=== PATIENT | male | born 1960 | race Caucasian/White ===

== ENCOUNTER 2018-12-12 12:28 | Day surgery (SDC) | payer OTHER, SELFPAY ==
[2018-12-12] MEDS: SODIUM CHLORIDE 0.9% 1,000 ML 150 ML IV (13:06)
[2018-12-12 13:11] VITALS: BP 120/81; PULSE 89; RESP 16; TEMP 36.8; O2SAT 96; BMI 30.6
--- NOTE | 2018-12-12 14:00 | PM.HP.1 ---
History of Present Illness Date Patient Seen: 12/12/18 Time Patient Seen: 14:01 Chief complaint: [id number] Narrative: Wonderful 58-year-old man here for his 1st screening colonoscopy. He denies any problems associated with the function of his GI tract reports he needs colonoscopy as part of health maintenance program. Patient History Social History household members: spouse Family & Social History Social History: household members spouse Meds Home Medications Medication Instructions Recorded Confirmed Type amlodipine 10 mg PO DAILY 12/12/18 12/12/18 History aspirin [Aspirin Low Dose] 81 mg PO DAILY 12/12/18 12/12/18 History atorvastatin 10 mg PO DAILY 12/12/18 12/12/18 History ergocalciferol (vitamin D2) 50,000 units PO DAILY 12/12/18 12/12/18 History etodolac 400 mg PO DAILY 12/12/18 12/12/18 History losartan 100 mg PO DAILY 12/12/18 12/12/18 History Allergies Allergy/AdvReac Type Severity Reaction Status Date / Time morphine AdvReac Mild itching Verified 12/12/18 13:07 Review of Systems Review of Systems All systems reviewed & are unremarkable except as noted in HPI and below Exam Vital Signs (past 8 hours): - 12/12/18 13:11 Temperature 98.2 F Pulse Rate 89 Respiratory Rate 16 Blood Pressure 120/81 Pulse Oximetry 96 Oxygen Delivery Method Room Air Narrative Exam Narrative: Pleasant, well-nourished, well-developed gentleman in no distress. HEENT: Normocephalic and atraumatic, pupils equal round reactive to light accommodation with anicteric sclera Lungs: Clear bilaterally Heart: Regular rate and rhythm Abdomen: Soft, nontender to palpation, active bowel sounds, Extremities: Warm well perfused Assessment & Plan Assessment Narrative: Pleasant gentleman here her for his 1st screening colonoscopy. Plan Narrative: We have discussed the risks and benefits of colonoscopy the patient expressed desire to complete the procedure today.
[2018-12-12] MEDS: fentaNYL 250 MCG/5 ML INJ IV (14:10)
[2018-12-12] MEDS: MIDAZOLAM 5 MG/5 ML VIAL IV (14:11)
--- NOTE | 2018-12-12 14:22 | PM.OP.1 ---
Operative Date/Time/Diagnoses Date of procedure: 12/12/18 Time of procedure: 14:22 Pre-op diagnosis: Screening Post-op diagnosis: same Procedure & Clinicians Procedure: Colonoscopy to the cecum Same procedure as scheduled: Yes Indications: No prior colonoscopy Surgeon: Rayne Pineda Anesthesia Type: Sedation (Versed 5 mg; fentanyl 150 mcg) Operative Notes Findings: 1. Adequate prep 2. No polyps or mass lesions 3. No AV malformations 4. Mild diverticulosis limited to the sigmoid region 5. Grade 1-2 internal hemorrhoids Closure Type: not applicable Specimen(s): none sent Procedure in detail: After obtaining informed consent, the patient was brought to the GI suite and placed in the left lateral decubitus position on the examination table. After placement of appropriate monitors, the patient was given incremental doses of Versed and Fentanyl until an appropriate level of sedation was achieved. A time out was held per [facility] protocol. A digital rectal examination was performed and did not reveal any masses or obstructing lesions. The colonoscope was gently passed into the patient's anus and the entire colon navigated to the level of the cecum with minimal difficulty. Once in the cecum, the scope was withdrawn being sure to go before and beyond all mucosal folds and prominences and get an excellent examination. The findings are noted above. At the level of the rectal vault, the scope was retroflexed and the internal anal canal was examined. The scope was straightened and air aspirated from the colon. The instrument was removed from the patient's body and the procedure was concluded. The patient was allowed to awaken from sedation without difficulty and taken to the post-anesthesia care unit in good condition. Total sedation time was 18 min Total withdrawal time was 8 min and 2 sec Complications: none Condition: stable Disposition: PACU Plan for aftercare: 1. Discharge to home 2. Plan for next colonoscopy in 10 years or as clinically indicated
[2018-12-12 14:27] VITALS: BP 118/77; PULSE 88; RESP 15; TEMP 36.6; O2SAT 94
== END 2018-12-12 12:43 | disposition home or self-care (01) ==
PROVIDERS: Family Provider Family Medicine; PCP Family Medicine; Visit Provider Surgery
PROC: 0DJD8ZZ Inspection of Lower Intestinal Tract, Via Natural or Artificial Opening Endoscopic (ICD-10-PCS; CPT 45378; principal; 2018-12-12 14:00)
DX: Z12.11 Encounter for screening for malignant neoplasm of colon (principal); K57.30 Diverticulosis of large intestine without perforation or abscess without bleeding; K64.1 Second degree hemorrhoids
CPT/HCPCS: 45378; 99152; J2250; J3010